=== PATIENT | female | born 1975 | race Caucasian/White ===

== ENCOUNTER 2017-03-16 16:24 | Emergency (ER) | payer OTHER ==
[~2017-03-16] VITALS: Wt 68.0 kg
[~2017-03-16 16:24] MED LIST: FLAGYL500 MG PO; ZITHROMAX250 MG PO
[2017-03-16] MEDS ORDERED: METHADONE H5 MG/5 ML PO (16:51)
[2017-03-16 17:07] LABS: BILIRUBIN NEGATIVE (NEGATIVE); BLOOD NEGATIVE (NEGATIVE); CLARITY SL CLOUDY (CLEAR); COLOR YELLOW (YELLOW); GLUCOSE NEGATIVE (NEGATIVE); KETONE TRACE (NEGATIVE); LEUKO ESTERASE NEGATIVE (NEGATIVE); NITRITE NEGATIVE (NEGATIVE); PH 5.5 (5.0-9.0); SPECIFIC GRAVITY 1.025 (1.005-1.030); UROBILINOGEN 0.2 E.U./dl (0.2-1.0)
[2017-03-16 17:17] LABS: BACTERIA TRACE; EPITHELIAL CELLS 25-30; MUCOUS TRACE
== END 2017-03-16 18:20 | disposition home or self-care (01) ==
LOC: ED 16:24
PROVIDERS: Physician Assistant
DX: Z11.3 Encounter for screening for infections with a predominantly sexual mode of transmission (principal); F10.10 Alcohol abuse, uncomplicated; F17.200 Nicotine dependence, unspecified, uncomplicated; Z88.8 Allergy status to other drugs, medicaments and biological substances; Z79.899 Other long term (current) drug therapy; R30.0 Dysuria

== ENCOUNTER 2017-03-21 12:10 | Emergency (ER) | payer OTHER ==
[~2017-03-21] VITALS: Ht 170.1 cm; Wt 68.0 kg
[~2017-03-21 12:10] MED LIST changes: +METHADONE H5 MG/5 ML PO
[2017-03-21] MEDS ORDERED: MEDROL DOSEPAK4 MG PO (14:23)
[2017-03-21] MEDS ORDERED: CYCLOBENZAPRINE5 M3 PO (14:23)
== END 2017-03-21 14:40 | disposition home or self-care (01) ==
LOC: ED 12:10
DX: S30.0XXA Contusion of lower back and pelvis, initial encounter (principal); F17.200 Nicotine dependence, unspecified, uncomplicated; F10.10 Alcohol abuse, uncomplicated; Z88.8 Allergy status to other drugs, medicaments and biological substances; Z79.899 Other long term (current) drug therapy; W01.198A Fall on same level from slipping, tripping and stumbling with subsequent striking against other object, initial encounter; Y93.89 Activity, other specified; Y92.89 Other specified places as the place of occurrence of the external cause; Y99.8 Other external cause status

== ENCOUNTER 2017-04-18 20:59 | Emergency (ER) | payer OTHER ==
[~2017-04-18] VITALS: Ht 170.1 cm; Wt 68.0 kg
[~2017-04-18 20:59] MED LIST changes: +CYCLOBENZAPRINE5 M3 PO; +MEDROL DOSEPAK4 MG PO
== END 2017-04-18 22:46 | disposition left against medical advice (07) ==
LOC: ED 20:59
DX: M25.512 Pain in left shoulder (principal); F17.200 Nicotine dependence, unspecified, uncomplicated; Z79.899 Other long term (current) drug therapy; Z88.6 Allergy status to analgesic agent; Z91.040 Latex allergy status

== ENCOUNTER 2017-08-05 01:28 | Emergency (ER) | payer OTHER ==
[~2017-08-05] VITALS: Ht 170.1 cm; Wt 65.8 kg
[2017-08-05 02:06] LABS: BILIRUBIN NEGATIVE (NEGATIVE); BLOOD TRACE-INTACT (NEGATIVE); CLARITY SL CLOUDY (CLEAR); COLOR YELLOW (YELLOW); GLUCOSE NEGATIVE (NEGATIVE); KETONE NEGATIVE (NEGATIVE); LEUKO ESTERASE 3+ (NEGATIVE); NITRITE NEGATIVE (NEGATIVE); PH 5.5 (5.0-9.0); UROBILINOGEN 0.2 E.U./dl (0.2-1.0)
[2017-08-05 02:19] LABS: EPITHELIAL CELLS 45-50
[2017-08-05 02:23] LABS: WBC 21-30 wbc/hpf (0-5)
== END 2017-08-05 01:45 | disposition home or self-care (01) ==
LOC: ED 01:28
PROVIDERS: Physician Assistant
DX: A64 Unspecified sexually transmitted disease (principal); F17.200 Nicotine dependence, unspecified, uncomplicated; Z98.890 Other specified postprocedural states; Z79.899 Other long term (current) drug therapy; Z88.6 Allergy status to analgesic agent

== ENCOUNTER 2022-03-16 20:29 | Emergency (ER) | payer SELFPAY ==
[~2022-03-16] VITALS: Ht 170.1 cm; Wt 68.0 kg
[~2022-03-16 20:29] MED LIST changes: +SEPTDS PO
[2022-03-16] MEDS ORDERED: PREDNISONE20 M1 PO (22:08)
[2022-03-16] MEDS ORDERED: METHOCARBAMOL500 M1 PO (22:08)
== END 2022-03-16 22:35 | disposition home or self-care (01) ==
LOC: ED 20:29
DX: S39.012A Strain of muscle, fascia and tendon of lower back, initial encounter (principal); Z88.6 Allergy status to analgesic agent; Z79.899 Other long term (current) drug therapy; Z98.890 Other specified postprocedural states; Z90.89 Acquired absence of other organs; X58.XXXA Exposure to other specified factors, initial encounter; Y93.89 Activity, other specified; Y92.89 Other specified places as the place of occurrence of the external cause; Y99.8 Other external cause status

== ENCOUNTER 2022-03-23 10:33 | Emergency (ER) | payer SELFPAY ==
[~2022-03-23] VITALS: Ht 172.7 cm; Wt 77.1 kg
[~2022-03-23 10:33] MED LIST changes: +METHOCARBAMOL500 M1 PO; +PREDNISONE20 M1 PO
[2022-03-23 12:09] LABS: BILIRUBIN Negative (Negative); BLOOD Trace-Intact (Negative); CLARITY Turbid (Clear); COLOR Yellow (Yellow); GLUCOSE Negative (Negative); KETONE Trace (Negative); LEUKO ESTERASE 2+ (Negative); NITRITE Negative (Negative); PH 5.5 (4.5-8.0); SPECIFIC GRAVITY >= 1.030 (1.001-1.030)
[2022-03-23 12:24] LABS: WBC TNTC wbc/hpf (0-5)
[2022-03-23 12:25] LABS: BACTERIA 1+
== END 2022-03-23 12:38 | disposition home or self-care (01) ==
LOC: ED 10:33
PROVIDERS: Physician Assistant
DX: A59.9 Trichomoniasis, unspecified (principal); Z88.6 Allergy status to analgesic agent; Z98.51 Tubal ligation status; Z98.890 Other specified postprocedural states; Z87.891 Personal history of nicotine dependence; F10.90 Alcohol use, unspecified, uncomplicated

== ENCOUNTER 2022-04-02 11:56 | Emergency (ER) | payer SELFPAY ==
[~2022-04-02] VITALS: Ht 170.1 cm; Wt 68.0 kg
[2022-04-02 12:32] LABS: BILIRUBIN Negative (Negative); BLOOD Negative (Negative); CLARITY Clear (Clear); COLOR Yellow (Yellow); GLUCOSE Negative (Negative); KETONE Negative (Negative); LEUKO ESTERASE Negative (Negative); NITRITE Negative (Negative); SPECIFIC GRAVITY 1.015 (1.001-1.030)
[2022-04-02 12:45] LABS: MUCOUS 1+; RBC 0-2 rbc/hpf (0-2)
[2022-04-02 12:55] LABS: URINE AMPHETAMINES Negative (1000ng/ml); URINE BARBITURATES Negative (200ng/ml); URINE BENZODIAZEPINES Negative (200ng/ml); URINE CANNABINOIDS (THC) Positive (50ng/ml); URINE COCAINE Positive (300ng/ml); URINE METHADONE Negative (300ng/ml); URINE OPIATES Negative (300ng/ml); URINE PHENCYCLIDINE Negative (25ng/ml)
[2022-04-02] MEDS ORDERED: PREDNISONE50 MG PO (13:06)
== END 2022-04-02 13:18 | disposition home or self-care (01) ==
LOC: ED 11:56
PROVIDERS: Nurse Practitioner Family
DX: M54.50 Low back pain, unspecified (principal); M79.662 Pain in left lower leg; Z88.6 Allergy status to analgesic agent; Z79.899 Other long term (current) drug therapy; Z98.890 Other specified postprocedural states; Z90.89 Acquired absence of other organs

== ENCOUNTER 2022-04-08 05:54 | Emergency (ER) | payer SELFPAY ==
[~2022-04-08] VITALS: Ht 170.1 cm; Wt 59.0 kg
[~2022-04-08 05:54] MED LIST changes: +PREDNISONE50 MG PO
[2022-04-08] MEDS ORDERED: CYCLOBENZAPRINE10 MG PO (08:12)
[2022-04-08] MEDS ORDERED: TRAMADOL HCL50 MG PO (08:12)
== END 2022-04-08 08:20 | disposition home or self-care (01) ==
LOC: ED 05:54
DX: S30.0XXA Contusion of lower back and pelvis, initial encounter (principal); Z88.6 Allergy status to analgesic agent; Z98.890 Other specified postprocedural states; Z90.89 Acquired absence of other organs; X58.XXXA Exposure to other specified factors, initial encounter; Y93.89 Activity, other specified; Y92.89 Other specified places as the place of occurrence of the external cause; Y99.8 Other external cause status

== ENCOUNTER 2022-05-05 14:44 | Emergency (ER) | payer SELFPAY ==
[~2022-05-05] VITALS: Ht 170.1 cm; Wt 65.8 kg
[~2022-05-05 14:44] MED LIST changes: +CYCLOBENZAPRINE10 MG PO; +TRAMADOL HCL50 MG PO
[2022-05-06] MEDS ORDERED: PREDNISONE10 MG PO (07:25)
[2022-05-06] MEDS ORDERED: CYCLOBENZAPRINE10 MG PO (07:25)
[2022-05-06] MEDS ORDERED: Percocet 325 MG1 TAB PO (07:25)
== END 2022-05-05 17:10 | disposition left against medical advice (07) ==
LOC: ED 14:44
DX: M54.9 Dorsalgia, unspecified (principal); Z53.21 Procedure and treatment not carried out due to patient leaving prior to being seen by health care provider

== ENCOUNTER 2022-05-06 06:56 | Emergency (ER) | payer SELFPAY ==
[~2022-05-06] VITALS: Wt 65.8 kg
[2022-05-06] MEDS ORDERED: PREDNISONE10 MG PO (07:25)
[2022-05-06] MEDS ORDERED: CYCLOBENZAPRINE10 MG PO (07:25)
[2022-05-06] MEDS ORDERED: Percocet 325 MG1 TAB PO (07:25)
== END 2022-05-06 08:24 | disposition home or self-care (01) ==
LOC: ED 06:56
DX: M54.50 Low back pain, unspecified (principal); Z88.8 Allergy status to other drugs, medicaments and biological substances; Z90.89 Acquired absence of other organs; Z98.890 Other specified postprocedural states

== ENCOUNTER 2022-06-02 07:18 | Inpatient (IN) | payer OTHER ==
[~2022-06-02] VITALS: Ht 170.1 cm; Wt 56.9 kg
[~2022-06-02 07:18] MED LIST changes: +PREDNISONE10 MG PO; +Percocet 325 MG1 TAB PO
[2022-06-02 07:36] VITALS: BP 102/79
[2022-06-02 09:50] VITALS: BP 102/76
[2022-06-02 10:08] LABS: URINE AMPHETAMINES Negative (1000ng/ml); URINE BARBITURATES Negative (200ng/ml); URINE BENZODIAZEPINES Positive (200ng/ml); URINE CANNABINOIDS (THC) Positive (50ng/ml); URINE COCAINE Positive (300ng/ml); URINE METHADONE Negative (300ng/ml); URINE OPIATES Positive (300ng/ml); URINE PHENCYCLIDINE Negative (25ng/ml)
[2022-06-02 10:51] LABS: MANUAL DIFF REFLEX YES; MEAN CORPUSCULAR HGB 28.2 pg (27.0-31.0); MEAN CORPUSCULAR HGB CONC 31.6 g/dl (33.0-37.0); MEAN PLATELET VOLUME 10.8 fl (9.6-12.3); PLATELET COUNT AUTOMATED 251 10*3/uL (130-400); RED BLOOD COUNT 4.83 10*6/uL (4.10-5.10); RED CELL DISTRI WIDTH 16.5 % (0-14.5); WHITE BLOOD COUNT 9.6 10*3/uL (4.8-10.8)
[2022-06-02 11:12] LABS: ALKALINE PHOSPHATASE 109 U/L (46-116); BUN 12 mg/dl (9-23); CHLORIDE 107 mmol/L (98-107); POTASSIUM 3.8 mmol/L (3.4-5.1); SGPT/ALT 153 U/L (10-49); TOTAL PROTEIN 7.4 gm/dL (6.0-8.0)
[2022-06-02 11:32] LABS: ATYPICAL LYMPHS 4 % (0-0); TOTAL CELLS COUNTED 100 #CELLS
[2022-06-02 11:33] LABS: PLATELET SUFFICIENCY NORMAL (NORMAL); POLYCHROMASIA SLIGHT; ROULEAUX SLIGHT
[2022-06-02 12:00] VITALS: BP 102/76; BP 137/85
[2022-06-02 16:00] VITALS: BP 108/74
[2022-06-02 20:00] VITALS: BP 98/59
[2022-06-03] VITALS (8 sets, daily range): BP systolic 108–140; BP diastolic 63–97
[2022-06-03 06:48] LABS: BASO % 0.4 % (0.0-1.0); EOS # 0.4 10*3/uL (0.0-0.4); EOS % 3.9 % (1.0-4.0); HEMATOCRIT 43.6 % (37.0-47.0); LYMPH # 4.6 10*3/uL (1.3-4.4); LYMPH % 50.8 % (27.0-41.0); MEAN CELL VOLUME 88.8 fl (81.0-99.0); MEAN CORPUSCULAR HGB 27.9 pg (27.0-31.0); MEAN CORPUSCULAR HGB CONC 31.4 g/dl (33.0-37.0); MEAN PLATELET VOLUME 11.4 fl (9.6-12.3); MONO # 0.4 10*3/uL (0.1-1.0); MONO % 4.8 % (3.0-9.0); NEUT # 3.6 10*3/uL (2.3-7.9); NEUT % 39.9 % (47.0-73.0); PLATELET COUNT AUTOMATED 262 10*3/uL (130-400); RED BLOOD COUNT 4.91 10*6/uL (4.10-5.10); RED CELL DISTRI WIDTH 16.9 % (0-14.5)
[2022-06-03 07:33] LABS: ALKALINE PHOSPHATASE 108 U/L (46-116); BUN 10 mg/dl (9-23); CHLORIDE 110 mmol/L (98-107); CHOLESTEROL 121 mg/dL (<200); FREE T4 0.96 ng/dl (0.89-1.76); LDL CHOLESTEROL 61 mg/dL (9-159); SGPT/ALT 108 U/L (10-49); THYROID STIM HORMONE (HS) 1.706 uIU/ml (0.550-4.780); TOTAL PROTEIN 6.9 gm/dL (6.0-8.0); TRIGLYCERIDES 88 mg/dl (<150)
[2022-06-03 07:34] LABS: B-hCG (QUALITATIVE) NEGATIVE (NEGATIVE)
[2022-06-03] MEDS ORDERED: VITAMIN B-1100 M1 PO (16:01)
[2022-06-03] MEDS ORDERED: NATURE'S BLEND F1 MG PO (16:01)
[2022-06-03] MEDS ORDERED: METHOCARBAMOL750 M1 PO (16:01)
[2022-06-03] MEDS ORDERED: THERA TABLET400 MCG PO (16:01)
[2022-06-03] MEDS ORDERED: ATARAX,VISTARIL50 MG PO (16:01)
[2022-06-03] MEDS ORDERED: ROPINIROLE HYD0.5 MG PO (16:01)
[2022-06-03] MEDS ORDERED: ONDANSETRON HYDR4 M1 SL (16:01)
== END 2022-06-03 16:55 | disposition home or self-care (01) | DRG 502 ==
LOC: ED 07:18 → EDHOLD 08:21 → 5E 08:21 → EDHOLD 08:22 → 5E 09:34
PROVIDERS: Family Medicine; Registered Nurse; ADMIT Internal Medicine; ATTEND Internal Medicine
PROC: 0KC50ZZ Extirpation of Matter from Right Shoulder Muscle, Open Approach (ICD-10-PCS; principal; 2022-06-03)
DX: M79.5 Residual foreign body in soft tissue (principal); F11.10 Opioid abuse, uncomplicated; F17.210 Nicotine dependence, cigarettes, uncomplicated; F14.10 Cocaine abuse, uncomplicated; F12.10 Cannabis abuse, uncomplicated; F15.10 Other stimulant abuse, uncomplicated; Z88.6 Allergy status to analgesic agent; Z98.891 History of uterine scar from previous surgery; Z79.899 Other long term (current) drug therapy; Z71.6 Tobacco abuse counseling

== ENCOUNTER 2023-01-18 15:38 | Emergency (ER) | payer OTHER ==
[~2023-01-18] VITALS: Ht 170.1 cm; Wt 63.5 kg
[~2023-01-18 15:38] MED LIST changes: +ATARAX,VISTARIL50 MG PO; +METHOCARBAMOL750 M1 PO; +NATURE'S BLEND F1 MG PO; +ONDANSETRON HYDR4 M1 SL; +ROPINIROLE HYD0.5 MG PO; +THERA TABLET400 MCG PO; +VITAMIN B-1100 M1 PO
[2023-01-18] MEDS ORDERED: VIBRAMYCIN100 MG PO (18:44)
[2023-01-18] MEDS ORDERED: METRONIDAZOLE500 M1 PO (18:44)
[2023-01-18 18:48] LABS: BILIRUBIN Negative (Negative); BLOOD Negative (Negative); CLARITY Clear (Clear); COLOR Yellow (Yellow); GLUCOSE Negative (Negative); KETONE Trace (Negative); LEUKO ESTERASE Negative (Negative); NITRITE Negative (Negative)
[2023-01-18 18:55] LABS: EPITHELIAL CELLS 16-20; MUCOUS 1+; RBC 0-2 rbc/hpf (0-2)
== END 2023-01-18 19:18 | disposition home or self-care (01) ==
LOC: ED 15:38
PROVIDERS: Nurse Practitioner Family
DX: N90.9 Noninflammatory disorder of vulva and perineum, unspecified (principal); Z11.3 Encounter for screening for infections with a predominantly sexual mode of transmission; J45.909 Unspecified asthma, uncomplicated; Z88.6 Allergy status to analgesic agent; Z88.8 Allergy status to other drugs, medicaments and biological substances; Z90.89 Acquired absence of other organs; Z98.890 Other specified postprocedural states; F17.210 Nicotine dependence, cigarettes, uncomplicated; F12.90 Cannabis use, unspecified, uncomplicated; F14.90 Cocaine use, unspecified, uncomplicated

== ENCOUNTER 2024-03-11 13:25 | Emergency (ER) | payer OTHER ==
[~2024-03-11] VITALS: Ht 170.1 cm; Wt 77.1 kg
[~2024-03-11 13:25] MED LIST changes: +METRONIDAZOLE500 M1 PO; +VIBRAMYCIN100 MG PO
[2024-03-11] MEDS ORDERED: VIBRAMYCIN100 MG PO (13:43)
[2024-03-11] MEDS ORDERED: Doxycycline Hyclate 100 MG 2 TAB ED PACK PO SCH (13:45)
[2024-03-11 14:21] LABS: BILIRUBIN 1+ (Negative); BLOOD Negative (Negative); CLARITY Turbid (Clear); COLOR Dark Yellow (Yellow); GLUCOSE Negative (Negative); KETONE Trace (Negative); LEUKO ESTERASE 2+ (Negative); NITRITE Positive (Negative); SPECIFIC GRAVITY 1.025 (1.001-1.030)
[2024-03-11 14:40] LABS: BACTERIA 2+; EPITHELIAL CELLS 21-30; WBC 16-20 wbc/hpf (0-5)
== END 2024-03-11 14:29 | disposition home or self-care (01) ==
LOC: ED 13:25
PROVIDERS: Nurse Practitioner Family
DX: A64 Unspecified sexually transmitted disease (principal); J45.909 Unspecified asthma, uncomplicated; F14.90 Cocaine use, unspecified, uncomplicated; F12.90 Cannabis use, unspecified, uncomplicated; F17.210 Nicotine dependence, cigarettes, uncomplicated; Z88.6 Allergy status to analgesic agent; Z88.8 Allergy status to other drugs, medicaments and biological substances; Z98.890 Other specified postprocedural states; Z90.89 Acquired absence of other organs; Z79.899 Other long term (current) drug therapy

== ENCOUNTER 2024-12-31 18:28 | Emergency (ER) | payer OTHER | END 2024-12-31 20:50 | LOC: ED 18:28 | DX: J10.1 Influenza due to other identified influenza virus with other respiratory manifestations (principal); J45.901 Unspecified asthma with (acute) exacerbation; Z20.822 Contact with and (suspected) exposure to COVID-19 ==